=== PATIENT | female | born 1965 | race Caucasian/White ===

== ENCOUNTER → 2020-03-21 | Outpatient (CLI) | payer OTHER ==
[~2020-03-21] VITALS: Ht 160 cm; Wt 125.9 kg
[~2020-03-21] MED LIST: ADZENYS XR-OD15.7 MG PO; ALPRAZOLAM XR3 MG PO; CENTRUM SILVER1 EAC6 PO; EFFEXOR XR150 MG PO; ESOMEPRAZOLE MA40 MG PO; FUROSEMIDE 40 M40 MG PO; GABAPENTIN600 M1 PO; K-DUR10 MEQ PO; LEVO-T100 MCG PO; LIPITOR40 MG PO; METOCLOPRAMIDE10 MG PO; NEURONTIN300 MG PO; PAROXETINE HCL20 MG PO; PROAIR HFA8.5 GM INH; SAPHRIS5 MG SUBLING; STOOL SOFTENER100 MG PO; SYMBICORT160 MCG/4. INH; TYLENOL ARTHRI650 MG PO; VOLTAREN100 GM TOP; XIIDRA1 EACH EA. EYE; ZONEGRAN100 MG PO
--- NOTE | 2020-03-21 09:09 | NUR ---
HEARD PT SCREAMING. ENTERED ROOM IMMEDIATELY. pT WAS ON THE FLOOR LYING ON HER RIGHT SHOULDER. STATED WE SHOULD NOT HAVE PUT HER ON A TALL BED. STATED SHE WAS GOING TO [facility]. DR. CONNELLY NOTIFIED. XRAY OF RIGHT SHOULDER ORDERED STAT. sHE STATES SHE ALREADY HAD NEEDED SURGERY ON IT.
[2020-03-21 09:26] LABS: HEMOGLOBIN 13.5 gm/dL (12.0-15.0); MCH 29.2 pg (26.0-34.0); MCHC 32.9 g/dL (28.0-37.0); MCV 88.7 fL (80.0-100.0); RBC 4.62 mil/uL (4.20-5.00); RDW 16.1 % (10.5-14.5); WBC 10.9 thou/uL (4.0-11.0)
[2020-03-21 09:37] LABS: CALCIUM 9.1 mg/dL (8.5-10.1); CREATININE 1.8 mg/dL (0.6-1.0); POTASSIUM 4.7 mmol/L (3.5-5.1)
[2020-03-21 10:14] VITALS: BP 135/94
--- NOTE | 2020-03-21 12:30 | NUR ---
GAVE PT DRINKS OF DIET TOM. NOTIFIED BROTHER CARIN TO PICK HER UP AT 1420. READ OUT OF SHOULDER X RAY PRINTED OUT PER PT REQUEST.
--- NOTE | 2020-03-21 12:47 | CATHLAB ---
[facility] [place] [address] INVASIVE PROCEDURE REPORT Name: MANUEL NEWELL Room #: REG [facility] Elle#: [id number] Admission: 03/21/20 Attend Phys: Albert Day Discharge: Date of : 63 Report #: [id number] THIS REPORT FOR: cc: Yusuf Chong MD, Jacob MD Lammoglia, Francisco J. MD ~ APPROVED REPORT Study performed: 03/21/2020 11:25:39 Patient Details Patient Status: Out-Patient Room #: The patient is a 54 year-old female Event Personnel Albert Day Sign Writer Letterer Or Painter, Beverly Doty RN, Jelly Monteiro RTR, Tyler Soto Sherra RTR Monitor Procedures Performed Art Access - R femoral artery* Left Heart Cath w/or w/o Coronaries [id number] [facility] [id number] Initial Mod Sed Same Phys/QHP Gr 260476 74712 Mod Sed Same Phys/QHP Ea 607696 Hemostasis w/ Mynx, supervision of conscious sedation Indication Chest pain Procedure Narrative The Right Groin^ was infiltrated with 1% Lidocaine subcutaneous anesthesia. A PINNACLE 4FR Sheath #[id number] sheath was inserted into the RFA^. Coronary angiography was performed using coronary diagnostic catheters. The right coronary system was accessed and visualized with a JR4 catheter. The left coronary system was accessed and visualized with a JL4 catheter. The left ventricle was accessed and visualized with a PIGTAIL catheter. Closure device was deployed with a 5 Fr MYNXGRIP 5F #[id number]. The patient tolerated the procedure well and there were no complications associated with the procedure. There was no hematoma. Intraoperative Conscious Sedation Sedation start time: 1135 Case end Time: 1159 Versed 2 mg [facility] [address] [place] [address] INVASIVE PROCEDURE REPORT Name: MANUEL NEWELL Room #: REG [facility]#: [id number] Admission: 03/21/20 Attend Phys: Albert Grier Discharge: Date of : 63 Report #: [id number] Fluoro Time: 1.70 minutes Dose: DAP 5680.60 cGycm2 898 mGy Contrast Type and Amount: Omnipaque 40 ml Coronary Angiography The patient's coronary anatomy is right dominant. Diagnostic Cath Left Main Large-caliber normal origin long in length bifurcating left anterior descending left circumflex free of high-grade disease LAD Moderate caliber rapidly tapering type II vessel which courses in the anterior interventricular sulcus giving rise to septal diagonal branches as it tapers to a sustained string light vessel at the apex. No significant lesions are noted only mild irregularities are seen Diagonal 1 Small to moderate caliber vessel coursing on the anterolateral wall free of high-grade disease. Is tortuous in its course but no high-grade lesions are seen Circumflex Moderate caliber nondominant vessel giving rise to marginal l branches. Proximally there is a first marginal branch which is small caliber free of high-grade disease tortuous in its course per the circumflex continues in the AV groove giving rise to a second and third marginal branches all of which are free of high-grade disease tortuous in course and declining in size as a progress. The circumflex terminates as a small posterior wall branch supplying the posterior atrial chamber OM1 Moderate caliber vessel free of high-grade disease OM2 Small caliber vessel without significant lesion Right Coronary Large-caliber vessel normal origin courses in the AV groove giving rise to a small RV branch. The vessel continues to the crux of the heart gives rise to a moderate caliber posterior descending artery and terminates as a posterior wall branch and posterior left ventricular branch R PDA Moderate caliber vessel without significant stenosis Left Ventriculography Left Ventriculography was not performed. Hemodynamics The aortic pressure is 134/86 mmHg with a mean of 104 mmHg. The left ventricular pressure is 113/12 mmHg with a mean of mmHg. The left ventricular end diastolic pressure is 20 mmHg. Conclusion [facility] [address] [place] [address] INVASIVE PROCEDURE REPORT Name: MANUEL NEWELL Room #: REG Elle#: [id number] Admission: 03/21/20 Attend Phys: Albert Grier Discharge: Date of : 63 Report #: [id number] 1. Essentially normal coronary arteries 2. Abnormal hemodynamics with elevated low ventricular end-diastolic pressure Recommendations Cardiac Risk Reduction Program Weight Loss Reduction Program <ELECTRONICALLY SIGNED> By: Albert Day MD 03/21/20 1246 1246 1246 Albert Day MD /INF
--- NOTE | 2020-03-21 13:11 | NUR ---
pt has been sleeping since she was brought back to holding. Does not stir during right groin checks.
--- NOTE | 2020-03-21 13:38 | EKG ---
[facility] [place] [address] ELECTROCARDIOGRAM REPORT Name: MANUEL NEWELL Room #: REG [facility]#: [id number] Admission: 03/21/20 Attend Phys: Albert Day Discharge: Date of : 63 Report #: [id number] THIS REPORT FOR: cc: Yusuf Chong MD, Jacob MD Couchonnal,Loebardo Durbin MD ~ THIS REPORT FOR: //name// [facility] Test Date: 2020-03-21 Test Time: 09:13:55 Pat Name: MANUEL NEWELL Department: Room: Gender: F Room Cleaner: PENG : 1965 Requested By: Albert Day Order Number: [id number] MD: Leobardo Ghosh Measurements Intervals [place] Rate: 88 P: 62 [place]: 155 QRS: 19 QRSD: 97 T: 33 QT: 377 QTc: 457 Interpretive Statements Sinus rhythm Low voltage, precordial leads Borderline T abnormalities, anterior leads No previous ECG available for comparison Electronically Signed On 03-21-2020 13:38:14 CDT by Leobardo Ghosh [email or web address] <ELECTRONICALLY SIGNED> By: Leobardo Ghosh MD 03/21/20 1338 2 2 Leobardo Ghosh MD /EPI
--- NOTE | 2020-03-21 14:34 | NUR ---
PATIENT REFUSED MYNX BROSHURE. STATED SHE IS ANGRY ABOUT THE WHOLE THING. sTATES THIS WAS A WASTE OF TIME BECAUSE HER HEART CATH WAS NEGATIVE. PT WAS ABLE TO DRESS SELF WITH THIS NURSE IN ATTENDANCE.
== END | disposition home or self-care (01) ==
LOC: CATH 07:41
PROVIDERS: ATTEND Internal Medicine
DX: R07.9 Chest pain, unspecified (principal); I11.0 Hypertensive heart disease with heart failure; I50.1 Left ventricular failure, unspecified; M25.511 Pain in right shoulder; E78.5 Hyperlipidemia, unspecified; E03.9 Hypothyroidism, unspecified; J44.9 Chronic obstructive pulmonary disease, unspecified; G47.33 Obstructive sleep apnea (adult) (pediatric); K21.9 Gastro-esophageal reflux disease without esophagitis; D64.9 Anemia, unspecified; F32.9 Major depressive disorder, single episode, unspecified; E66.09 Other obesity due to excess calories; Z98.890 Other specified postprocedural states; Z79.899 Other long term (current) drug therapy; Z90.49 Acquired absence of other specified parts of digestive tract; Z96.611 Presence of right artificial shoulder joint; Z96.643 Presence of artificial hip joint, bilateral; Z90.710 Acquired absence of both cervix and uterus; Z88.8 Allergy status to other drugs, medicaments and biological substances